=== PATIENT | male | born 1980 | race Caucasian/White ===

== ENCOUNTER 2016-08-23 12:39 | Emergency (ER) | payer BC ==
[2016-08-23 12:55] VITALS: RESP 18
[2016-08-23] MEDS ORDERED: HYDROmorphone 1 MG/ML 1 ML SYRINGE IVP STA (13:21)
[2016-08-23] MEDS ORDERED: ONDANSETRON 4 MG/2 ML VIAL IVP STA (13:21)
[2016-08-23] MEDS ORDERED: PROPOFOL 10 MG/ML 20 ML VIAL IV STA (13:35)
--- NOTE | 2016-08-23 13:56 | XR ---
EXAMINATION TYPE: XR shoulder complete RT , 2 VIEWS DATE OF EXAM ORDERED: 08/23/2016 HISTORY: dislocation. COMPARISON: None. FINDINGS: There is an anterior dislocation of the shoulder. No definite fractures are seen. IMPRESSION: ANTERIOR DISLOCATION OF THE RIGHT SHOULDER. POST REDUCTION VIEWS WOULD BE SUGGESTED.
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
[2016-08-23] MEDS ORDERED: KETOROLAC 30 MG/ML 1 ML VIAL IVP STA (14:24)
--- NOTE | 2016-08-23 14:30 | XR ---
EXAMINATION TYPE: XR shoulder complete RT DATE OF EXAM: 08/23/2016 COMPARISON: NONE HISTORY: Postreduction TECHNIQUE: One view are submitted. FINDINGS: The osseous structures are intact. Post reduction view demonstrates anatomic alignment. AC joint main tained. IMPRESSION: 1. No evidence of dislocation
[2016-08-23 14:59] VITALS: BP 131/76; PULSE 89; TEMP 97.7
--- NOTE | 2016-08-29 05:58 | CDI ---
Dear Dmitry Saldana DO: Please do addendum start and stop time of conscious sedation. Thank you, Jered Sanon, Mingle Operator. If you have any questions, please contact Server Service Assistant at [phone]. [facility]
== END 2016-08-23 14:59 | disposition home or self-care (01) ==
LOC: EC 12:39
DX: S43.014A Anterior dislocation of right humerus, initial encounter (principal); X50.0XXA Overexertion from strenuous movement or load, initial encounter; Y93.89 Activity, other specified
CPT/HCPCS: 99283 ×2; 23650 ×2; 99152 ×2; 96374 ×2; 96375 ×2; 73030; J2405; J1885; J1170; J2704

== ENCOUNTER 2022-08-15 06:33 | Emergency (ER) | payer BC ==
[2022-08-15 06:47] VITALS: TEMP 98.8
[2022-08-15] MEDS ORDERED: SODIUM CHLORIDE 0.9% 1,000 ML IV STA (06:56)
[2022-08-15] MEDS ORDERED: SODIUM CHLORIDE 0.9% 500 ML 500 ML IV STA (06:56)
--- NOTE | 2022-08-15 06:57 | ED ---
Abdominal Pain HPI - General Chief Complaint: Abdominal Pain Stated Complaint: Fever, ABD Pain Time Seen by Provider: 08/15/22 06:51 Source: patient, RN notes reviewed Mode of arrival: ambulatory Limitations: no limitations - History of Present Illness Initial Comments: 41-year-old male presents emergency Department chief complaint right-sided abdominal pain. Patient states he doesn't feel well Monday and Monday states that he had pain time his shoulder back states she had some hot and cold flashes and nausea vomiting diarrhea. He assumed he had some sort of stomach virus. He states he continues to have discomfort when he eats and pain in the right lower quadrant. Patient has a history kidney stones denies any prior abdominal surgeries no dysuria. - Related Data Previous Rx's Medication Instructions Recorded Dicyclomine [Bentyl] 20 mg PO QID #24 tablet 10/16/14 Hydrocodone/Acetaminophen [[place] 1 - 2 each PO Q4HR PRN #20 tab 08/23/16 5-325] Naproxen [Naprosyn] 500 mg PO Q12HR PRN #20 tab 08/23/16 Allergies Allergy/AdvReac Type Severity Reaction Status Date / Time No Known Allergies Allergy Verified 08/23/16 12:55 Review of Systems ROS Statement: Those systems with pertinent positive or pertinent negative responses have been documented in the HPI. ROS Other: All systems not noted in ROS Statement are negative. Past Medical History Past Medical History: No Reported History History of Any Multi-Drug Resistant Organisms: None Reported Past Surgical History: No Surgical Hx Reported Past Psychological History: No Psychological Hx Reported Past Alcohol Use History: None Reported Past Drug Use History: None Reported General Exam Limitations: no limitations General appearance: alert, in no apparent distress Head exam: Present: atraumatic, normocephalic, normal inspection Eye exam: Present: normal appearance, PERRL, EOMI. Absent: scleral icterus, conjunctival injection, periorbital swelling ENT exam: Present: normal exam, normal oropharynx, mucous membranes moist Neck exam: Present: normal inspection, full ROM. Absent: tenderness, meningismus, lymphadenopathy Respiratory exam: Present: normal lung sounds bilaterally. Absent: respiratory distress, wheezes, rales, rhonchi, stridor Cardiovascular Exam: Present: regular rate, normal rhythm, normal heart sounds. Absent: systolic murmur, diastolic murmur, rubs, gallop, clicks GI/Abdominal exam: Present: soft, tenderness (Right lower quadrant tenderness), normal bowel sounds. Absent: distended, guarding, rebound, rigid Back exam: Absent: CVA tenderness (R), CVA tenderness (L) Neurological exam: Present: alert, oriented X3 Course Vital Signs 08/15/22 08/15/22 08/15/22 06:43 07:36 09:00 Temperature 98.8 F Pulse Rate 93 72 90 Respiratory 18 16 20 Rate Blood Pressure 111/78 106/68 137/70 O2 Sat by Pulse 97 98 99 Oximetry 08/15/22 10:10 Temperature Pulse Rate 70 Respiratory 16 Rate Blood Pressure 114/68 O2 Sat by Pulse 98 Oximetry Medical Decision Making - Medical Decision Making Was pt. sent in by a medical professional or institution (, PA, PHOTOGRAPHIC PLATE MAKER, urgent care, hospital, or group home...) When possible be specific @ -No Did you speak to anyone other than the patient for history (EMS, parent, family, police, friend...)? What history was obtained from this source @ -No Did you review nursing and triage notes (agree or disagree)? Why? @ -I reviewed and agree with nursing and triage notes Were old charts reviewed (outside hosp., previous admission, EMS record, old EK G, old radiological studies, urgent care reports/EKG's, group home records)? Report findings @ -No old charts were reviewed Differential Diagnosis (chest pain, altered mental status, abdominal pain women, abdominal pain men, vaginal bleeding, weakness, fever, dyspnea, syncope, headache, dizziness, GI bleed, back pain, seizure, CVA, palpatations, mental health, musculoskeletal)? @ -Differential Abdominal Pain Men: Appendicitis, cholecystitis, diverticulosis, ischemic bowel, pancreatitis, hepatitis, UTI, gastroenteritis, AAA, incarcerated hernia, bowel obstruction, constipation, inflammatory bowel, hepatitis, peptic ulcer disease, splenic infarction, perforated viscus, testicular torsion, this is not meant to be an all-inclusive listicable EKG interpreted by me (3pts min.). @ -As above X-rays interpreted by me (1pt min.). @ -None done CT interpreted by me (1pt min.). @ -CT pelvis shows no evidence of acute appendicitis U/S interpreted by me (1pt. min.). @ -Ultrasound shows no evidence of gallbladder disease, possible fatty liver disease What testing was considered but not performed or refused? (CT, X-rays, U/S, labs)? Why? @ -None What meds were considered but not given or refused? Why? @ -None Did you discuss the management of the patient with other professionals (magi lynch i.e. , PA, PHOTOGRAPHIC PLATE MAKER, lab, RT, psych nurse, professor of social work, sole leveler, teacher, code enforcement officer, wrapper caser)? Give summary @ -No Was smoking cessation discussed for >3mins.? @ -No Was critical care preformed (if so, how long)? @ -No Were there social determinants of health that impacted care today? How? (Homelessness, low income, unemployed, alcoholism, drug addiction, transportation, low edu. Level, literacy, decrease access to med. care, residential, rehab)? @ -No Was there de-escalation of care discussed even if they declined (Discuss DNR or withdrawal of care, Hospice)? DNR status @ -No What co-morbidities impacted this encounter? (DM, HTN, Smoking, COPD, CAD, Cancer, CVA, ARF, Chemo, Hep., AIDS, mental health diagnosis, sleep apnea, morbid obesity)? @ -None Was patient admitted / discharged? Hospital course, mention meds given and route, prescriptions, significant lab abnormalities, going to OR and other pertinent info. @ -Discharge patient feels greatly improved after IV fluids, labs and imaging unremarkable. Patient has gastroenteritis with discharge and states that she return parameters were discussed. Undiagnosed new problem with uncertain prognosis? @ -No Drug Therapy requiring intensive monitoring for toxicity (Heparin, Nitro, Insulin, Cardizem)? @ -No Were any procedures done? @ -No Diagnosis/symptom? @ -Enteritis] Acute, or Chronic, or Acute on Chronic? @ -Acute Uncomplicated (without systemic symptoms) or Complicated (systemic symptoms)? @ -Uncomplicated Side effects of treatment? @ -No Exacerbation, Progression, or Severe Exacerbation? @ -No Poses a threat to life or bodily function? How? (Chest pain, [place], [place], pneumonia, PE, COPD, DKA, ARF, appy, cholecystitis, CVA, Diverticulitis, Homicidal, Suicidal, threat to staff... and all critical care pts) @ -No - Lab Data Result diagrams: 08/15/22 06:56 08/15/22 06:56 Lab Results 08/15/22 08/15/22 08/15/22 Range/Units 06:56 06:56 06:56 WBC 4.6 (3.8-10.6) k/uL RBC 5.20 (4.30-5.90) m/uL Hgb 15.8 (13.0-17.5) gm/dL Hct 47.1 (39.0-53.0) % MCV 90.4 (80.0-100.0) fL MCH 30.4 (25.0-35.0) pg MCHC 33.6 (31.0-37.0) g/dL RDW 13.0 (11.5-15.5) % Plt Count 229 (150-450) k/uL MPV 7.2 Neutrophils % 61 % Lymphocytes % 22 % Monocytes % 12 % Eosinophils % 2 % Basophils % 0 % Neutrophils # 2.8 (1.3-7.7) k/uL Lymphocytes # 1.0 (1.0-4.8) k/uL Monocytes # 0.6 (0-1.0) k/uL Eosinophils # 0.1 (0-0.7) k/uL Basophils # 0.0 (0-0.2) k/uL Sodium 139 (137-145) mmol/L Potassium 3.8 (3.5-5.1) mmol/L Chloride 101 (98-107) mmol/L Carbon Dioxide 28 (22-30) mmol/L Anion Gap 10 mmol/L BUN 14 (9-20) mg/dL Creatinine 1.13 (0.66-1.25) mg/dL Est GFR (CKD-EPI)AfAm >90 (>60 ml/min/1.73 sqM) Est GFR (CKD-EPI)NonAf 80 (>60 ml/min/1.73 sqM) Glucose 101 H (74-99) mg/dL Plasma Lactic Acid Shawn 0.6 L (0.7-2.0) mmol/L Calcium 9.1 (8.4-10.2) mg/dL Total Bilirubin 0.7 (0.2-1.3) mg/dL AST 30 (17-59) U/L ALT 27 (4-49) U/L Alkaline Phosphatase 78 (38-126) U/L Total Protein 7.0 (6.3-8.2) g/dL Albumin 4.1 (3.5-5.0) g/dL Lipase 59 (23-300) U/L Disposition Clinical Impression: Gastroenteritis Disposition: HOME SELF-CARE Condition: Stable Instructions (If sedation given, give patient instructions): Gastroenteritis (ED) Additional Instructions: Please return to the Emergency Department if symptoms worsen or any other concerns. Is patient prescribed a controlled substance at d/c from ED?: No Referrals: Dede Alvarez MD [Primary Care Provider] - 1-2 days Jun Boyce MD [STAFF PHYSICIAN] - 1-2 days Time of Disposition: 09:31
[2022-08-15 07:50] LABS: Basophils % (A) 0 %; Eosinophils # (A) 0.1 k/uL (0-0.7); Eosinophils % (A) 2 %; HCT 47.1 % (39.0-53.0); HGB 15.8 gm/dL (13.0-17.5); Lymphocytes % (A) 22 %; MCH 30.4 pg (25.0-35.0); MCHC 33.6 g/dL (31.0-37.0); MCV 90.4 fL (80.0-100.0); Mean Platelet Volume 7.2; Monocytes # (A) 0.6 k/uL (0-1.0); Monocytes % (A) 12 %; Neutrophils # (A) 2.8 k/uL (1.3-7.7); Neutrophils % (A) 61 %; Platelet Count 229 k/uL (150-450); WBC 4.6 k/uL (3.8-10.6)
[2022-08-15 08:05] LABS: ALT 27 U/L (4-49); AST 30 U/L (17-59); African American GFR (CKD) >90 (>60 ml/min/1.73 sqM); Albumin 4.1 g/dL (3.5-5.0); Alkaline Phosphatase 78 U/L (38-126); Anion Gap 10 mmol/L; Blood Urea Nitrogen 14 mg/dL (9-20); Calcium 9.1 mg/dL (8.4-10.2); Carbon Dioxide 28 mmol/L (22-30); Chloride 101 mmol/L (98-107); Glucose 101 mg/dL (74-99); Lipase 59 U/L (23-300); Non-African American GFR(CKD) 80 (>60 ml/min/1.73 sqM); Potassium 3.8 mmol/L (3.5-5.1); Sodium 139 mmol/L (137-145); Total Bilirubin 0.7 mg/dL (0.2-1.3)
--- NOTE | 2022-08-15 08:20 | CT ---
EXAMINATION TYPE: CT abdomen pelvis w con CT DLP: 1773.2 mGycm, Automated exposure control for dose reduction was used. DATE OF EXAM: 08/15/2022 8:12 AM COMPARISON: CT abdomen pelvis most recent from 10/16/2014 CLINICAL INDICATION: Male, 41 years old with history of abdominal pain - right; RLQ pain, Rt rib pain TECHNIQUE: Axial CT of the abdomen and pelvis. Sagittal and coronal reformats were created on a [employer] workstation. Contrast used:100 mL of Isovue 300 with IV Contrast, (none if empty) Oral contrast used: without Oral Contrast (none if empty) FINDINGS: LOWER CHEST: Unremarkable ABDOMEN LIVER: Unremarkable GALLBLADDER AND BILE DUCTS: The gallbladder is partially distended. PANCREAS: Unremarkable. SPLEEN: Unremarkable. ADRENAL GLANDS: Unremarkable. KIDNEYS AND URETERS: No evidence of hydronephrosis or renal calculus. The ureters are unremarkable. PELVIS BLADDER: Unremarkable REPRODUCTIVE: Coarse calcifications of the prostate gland are identified. Left varicoceles. ABDOMEN & PELVIS STOMACH AND BOWEL: No evidence of bowel obstruction. The appendix appears normal. PERITONEUM/RETROPERITONEUM: No evidence of pneumoperitoneum or free fluid. VASCULATURE: No evidence of aortic aneurysm. MUSCULOSKELETAL: No acute osseous abnormalities, grade 1 anterolisthesis of L5 on S1 with bilateral s pondylolysis. LYMPH NODES: No gross evidence for lymphadenopathy. SOFT TISSUE/ABDOMINAL WALL: Fat-containing umbilical hernia. Fat-containing left inguinal hernia. IMPRESSION: 1. No definitive evidence for acute right lower quadrant process. Appendix is within normal limits , no obstructive uropathy, no renal calculi. The ribs appear intact. 2. Fat-containing umbilical and left inguinal hernia. 3. Grade 1 anterolisthesis of L5 on S1 with bilateral spondylolysis.
--- NOTE | 2022-08-15 09:04 | US ---
EXAMINATION TYPE: US gallbladder DATE OF EXAM: 08/15/2022 COMPARISON: NONE CLINICAL INDICATION: Male, 41 years old with history of pain; abd pain with fever TECHNIQUE: Multiple sonographic images of the right upper quadrant are obtained. FINDINGS: EXAM MEASUREMENTS: Liver Length: 16.3 cm Gallbladder Wall: 0.2 cm CBD: 0.6 cm Right Kidney: 10.0 x 4.7 x 5.3 cm Pancreas: not seen due to bowel gas Liver: Increased echo pattern Gallbladder: appears slightly contracted, patient is 19hrs NPO Evidence for sonographic Su's sign: no CBD: wnl Right Kidney: wnl IMPRESSION: No acute process. Liver increased in echo pattern which is nonspecific and can be associated with hep atic steatosis or hepatocellular disease.
[2022-08-15 10:11] VITALS: BP 114/68; PULSE 70; RESP 16
== END 2022-08-15 10:11 | disposition home or self-care (01) ==
LOC: EC 06:33
DX: K52.9 Noninfective gastroenteritis and colitis, unspecified (principal); K40.90 Unilateral inguinal hernia, without obstruction or gangrene, not specified as recurrent; M43.17 Spondylolisthesis, lumbosacral region
CPT/HCPCS: 36415; 80053; 83605; 83690; 85025; 76705; 74177; 99284; 96360; Q9967